=== PATIENT | female | born 1980 | race Caucasian/White ===

== ENCOUNTER 2016-10-24 11:15 | Outpatient (CLI) | payer MEDICAID ==
[~2016-10-24] VITALS: Ht 157.5 cm; Wt 80.7 kg
[2016-10-24 11:46] VITALS: Ht 157.5 cm; Wt 80.7 kg
[2016-10-24 11:47] VITALS: BP 116/66; PULSE 86; RESP 18
[2016-10-24] MEDS ORDERED: PRENAT PO (11:50)
[2016-10-24] MEDS ORDERED: FERR325C PO ×2 (11:51)
[2016-10-24] MEDS ORDERED: CALC-516 PO (11:51)
--- NOTE | 2016-10-24 14:08 | QN ---
Documentation Comment 35 y/o female sent from NST at 36 weeks gestation for ? deceleration on NST upon prolonged montoring NO deceleration seen will D/C home F/U with NST tgck BRANT Orozco MD Oct 24, 2016 14:08
--- NOTE | 2016-10-24 15:43 | CONS ---
Date/Time of Note Date/Time of Note DATE: 10/24/16 TIME: 15:35 Consultation Date/Type/Reason Admit Date/Time October 24, 2016. This is a triage consult dictation on Alysha Hilario : This patient is a 36 weeks and 5 days who was sent to triage due to late deceleration noted in NST clinic. She came here for extended monitoring. In reviewing her past medical history, she is a 2 para 1 with EDC of November 16, 2069 which makes her 36 weeks. She also has diabetes mellitus diet-controlled, Vital signs:. Blood pressure 116/66, pulse rate 86, respiration 18, heart tone normal range. Physical examination : basically abdomen is soft no to contractions No CVA tenderness, During an extended monitoring we did not notice any late decelerations or any deceleration for that matter, The tracing shows good variability and accelerations Subjective hx not possible: pt critical Constitutional: no complaints (With these positive findings of discharge patient home traction given for kick to attend the NST clinic end of dictation thank you) Eyes: no complaints Respiratory: no complaints Social History Smoking Status: Never smoker Exam/Review of Systems Vital Signs Vitals Vital Signs Date Time Temp Pulse Resp B/P Pulse Ox O2 Delivery O2 Flow Rate FiO2 10/24/16 11:47 98.0 86 18 116/66 Room Air BIBIANA BALDERAS MD Oct 24, 2016 15:43
--- NOTE | 2016-10-24 17:23 | TRIAGE ---
OB Triage Datetime Report Generated by CPN: 10/24/2016 17:23 Datetime: 10/24/2016 15:32 Stage of : OB Triage Labor Evaluation Frequency: occ Monitor Mode: External Duration (sec)2399: 40-70 Resting Tone [place]: Relaxed Heart Rate FHR Baseline Rate: 120 FHR Baseline Changes: No Baseline Change Variability: Moderate 6-25 bpm Accelerations: 15X15 Decelerations: None Category: Category I Datetime: 10/24/2016 14:30 Stage of : OB Triage Labor Evaluation Frequency: occ Monitor Mode: External Duration (sec)2399: 40-80 Quality: Mild Resting Tone [place]: Relaxed Heart Rate FHR Baseline Rate: 130 Monitor Mode: External US FHR Baseline Changes: No Baseline Change Variability: Moderate 6-25 bpm Accelerations: 15X15 Decelerations: None Category: Category I Datetime: 10/24/2016 13:10 Stage of : OB Triage Labor Evaluation Frequency: OCC Monitor Mode: External Duration (sec)2399: 40-70 Quality: Mild Resting Tone [place]: Relaxed Heart Rate FHR Baseline Rate: 140 Monitor Mode: External US Variability: Moderate 6-25 bpm Accelerations: 15X15 Decelerations: None Category: Category I Datetime: 10/24/2016 12:30 Stage of : OB Triage Labor Evaluation Frequency: occ Monitor Mode: External Duration (sec)2399: 40-80 Quality: Mild Resting Tone [place]: Relaxed Heart Rate FHR Baseline Rate: 130 Monitor Mode: External US Variability: Moderate 6-25 bpm Accelerations: 15X15 Decelerations: None Category: Category I Datetime: 10/24/2016 11:39 Assessment Type: Triage Maternal Assessment Level of Consciousness: Fully Conscious DTR's/Clonus: DTRs 2+; No Clonus Headache: Denies Blurred Vision: No Respiratory Effort: Unlabored Breath Sounds, Left: Clear and Equal Breath Sounds, Right: Clear and Equal Nausea/Vomiting: Denies RUQ Epigastric Pain: Denies Lower Extremities Edema: None Degree: None Upper Extremities Edema: None Degree: None Facial Edema: None Fall Risk Assessment History of Falling: (0) No Secondary Diagnosis: (15) Yes (Annotations: A1DM) Ambulatory Aid: (0) Bedrest/Nurse Assist IV Therapy: (0) No Gait: (0) Normal/Bedrest/Immobile Mental Status: (0) Oriented to Own Ability Fall Score: 15 Fall Risk Score Definition: No Risk: No action required Datetime: 10/24/2016 11:37 Time of Arrival: 10/24/2016 11:12 EGA: 36.5 Arrived By: Ambulatory Arrived From: Other Unit in Hospital Chief Complaint: Sent from NST for late decels Movement: Present Contractions: Denies/Absent Rupture of Membranes: Denies Vaginal Bleeding: None Vaginal Discharge: Denies Recent Sexual Intercouse: Denies Abdominal Trauma: Not Applicable Patient Complaints: Other Provider Notified: ERIN Initial Plan: VS, Extended monitoring Datetime: 10/24/2016 11:32 Stage of : OB Triage Monitor Mode: External Monitor Mode: External US Datetime: 10/24/2016 11:27 Stage of : OB Triage Datetime: 10/24/2016 11:18 Stage of : OB Triage
== END 2016-10-24 15:50 | disposition home or self-care (01) ==
LOC: OBT 11:15 → L-D 11:15 → OBT 15:50
PROVIDERS: ATTEND Obstetrics & Gynecology
DX: O26.893 Other specified pregnancy related conditions, third trimester (principal); O24.913 Unspecified diabetes mellitus in pregnancy, third trimester; O62.9 Abnormality of forces of labor, unspecified; Z3A.36 36 weeks gestation of pregnancy
CPT/HCPCS: 36415; Z7500; G0463

== ENCOUNTER 2016-10-28 12:08 | Inpatient (IN) | payer MEDICAID ==
[~2016-10-28] VITALS: Ht 157.5 cm; Wt 81.0 kg
[~2016-10-28 12:08] MED LIST: CALC-516 PO; FERR325C PO; PRENAT PO
[2016-10-28 12:58] VITALS: BP 117/70; PULSE 88; RESP 16; Ht 157.5 cm; Wt 81.0 kg
[2016-10-28] MEDS ORDERED: LACTATED RINGER'S 1,000 ML IV ONE (13:00)
[2016-10-28] MEDS: LACTATED RINGER'S 1,000 ML IV SCH ×2 (13:37→18:55)
--- NOTE | 2016-10-28 17:39 | NSTRPT ---
NST Information Datetime Report Generated by CPN: 10/28/2016 17:39 Datetime: 10/28/2016 09:25 NST Information EGA: 37.2 Time on Monitor: 10/28/2016 09:36 Time off Monitor: 10/28/2016 10:14 NST Duration (Min): 38 Test and Monitor Explained: Monitor Explained; Test Explained; Verbalized Understanding Pulse: 71 Resp: 18 SBP: 102 DBP: 55 Test Evaluation Contraction Frequency: X1, pt denies FHR Baseline : 135 Variability: Moderate 6-25bpm Accelerations: 15X15 Decelerations: None FHR Category: Category I NST Results: Reactive Provider Notified: Dr Shin Comments: To u/s CONY-5.4 cm, [facility] NST reviewed by Dr Yoder, recommends 4 hrs of hydration and if not improved, delivery. 1010-Repo rt called to Dr Shin, including Dr Yoder's recommendations, Orders received to send pt to triage f or hydration. 1020-POC explained to pt, asks if she can go home first, explained she needs to [facility] due to low cony. States understanding, denies further questions at this time, Pt to triage. Electronically Signed By E-Signature: with User ID: [id number]
[2016-10-29] MEDS: LACTATED RINGER'S 1,000 ML IV SCH ×3 (01:34→15:24)
--- NOTE | 2016-10-29 07:40 | RADRPT ---
PROCEDURE: Limited OB ultrasound CLINICAL INDICATION: Low CONY TECHNIQUE: Sonographic evaluation to assess the CONY was performed. Transabdominal imaging of the gravid uterus was performed. COMPARISON: No prior exam is available for comparison. FINDINGS: There is a single live intrauterine with a heart rate of 128 bpm. position is cephalic. The placenta is anterior. The CONY measures 8.2 cm. IMPRESSION: The CONY measures 8.2 cm. RPTAT: HH .Cassy Bonilla MD, MD Date Time Electronically viewed and signed by .Cassy Bonilla MD, on 10/29/2016 07:40 .G/
[2016-10-29] MEDS ORDERED: FERROUS SULFATE (EC) 325 MG TAB PO SCH (09:00)
[2016-10-29] MEDS ORDERED: MULTIVIT/MIN/FOLATE/IRON/PREN TAB PO SCH (09:00)
--- NOTE | 2016-10-29 15:38 | HP ---
Date/Time of Note Date/Time of Note late entry DATE: 10/28/16 OB - History Hx of Present Free Text/Dictation admitted for IV hydration because of CONY of 5.4cm yesterday Last Menstrual Period: February 10, 2016 Estimated Due Date: Nov 19, 2016 : 2 Para: 1 Ultrasounds: Abnormal US findings (single umbilical artery ) Obstetrical Complications: Gestational Diabetes Medical Complications: None Past Family/Social History * Past Medical, Surgical, Family and Obstetric Histories reviewed from chart. Blood Type: O+ Rubella: immune RPR/VDRL: Negative GBS Status: Unknown HBsAG: Negative OB Admission Exam Vital Signs Vital Signs Vital Signs Date Time Temp Pulse Resp B/P Pulse Ox O2 Delivery O2 Flow Rate FiO2 10/28/16 12:58 98.6 88 16 117/70 Room Air Physical Exam HEENT: WNL Heart: Rhythm Normal Lungs: Clear, Equal Abdomen: WNL Extremities: Normal Reflexes: Normal Cervical Dilatation: None Effacement: 0% Station: -3 Membranes: Intact Heart Rate: 150's Accelerations: Accelerations Present Decelerations: No Decelerations Varibility: Marked Contractions on Admission: None Last 72 hourBlood Glucose Bedside Glucose - 72 Hours Test 10/28/16 21:27 10/29/16 07:51 10/29/16 10:39 10/29/16 14:54 Bedside Glucose 104mg/dL (70-220) 72mg/dL (70-220) 104mg/dL (70-220) 123mg/dL (70-220) OB Assessment/Plan Other Assessment: 37 + weeks gestation decreased amniotic fluid Other plan: IV hydration BRANT PHILIP MD Oct 29, 2016 15:38
--- NOTE | 2016-10-29 15:41 | DS ---
Date/Time of Note Date/Time of Note refer to NST clinic in 2 days F/U with clinic in 2 days DATE: 10/29/16 TIME: 15:38 Obstetrical Discharge Record Final Diagnosis Final Diagnosis: Term not delivered Other Final Diagnosis decreased amniotic fluid ( resolved ) CONY on 10/29/2016 : 8.2cm Complications Gestational Diabetes Condition on Discharge Physical Assessment Voiding: Yes Bowel Movement: Yes Breast: Soft, non-tender, Filling Fundus: Other (gravid ) Abdomen and Incision: soft BS + Gravid Episiotomy: NA Calf Tenderness: No Patient Condition: Good BRANT PHILIP MD Oct 29, 2016 15:41
--- NOTE | 2016-10-29 15:43 | PD.PPDC ---
[employer] Discharge Instruction Provider Information Physician Information decreased amniotic fluid 37 weeks gestation Diagnosis Final Diagnosis: decreased amniotic fluid: resolved Condition Patient Condition: Good Diet Diet: Special Diet (200 kaden ADA) Activity/Restrictions Activity: Normal Activity May Shower Restrictions: Nothing in the Vagina Follow-up Follow-up with Physician: 2, Day/Days (in clinic and NST) BRANT PHILIP MD Oct 29, 2016 15:43
== END 2016-10-29 17:31 | disposition home or self-care (01) | DRG 781 ==
LOC: OBT 12:08 → L-D 12:10 → OBT 14:19 → L-D 14:21 → OBG 20:36
PROVIDERS: ADMIT Obstetrics & Gynecology; ATTEND Obstetrics & Gynecology
DX: O41.93X0 Disorder of amniotic fluid and membranes, unspecified, third trimester, not applicable or unspecified (principal); O24.419 Gestational diabetes mellitus in pregnancy, unspecified control; Z3A.37 37 weeks gestation of pregnancy
CPT/HCPCS: 36415; 76816; 82962; 96360; G0463; J7120

== ENCOUNTER 2016-11-09 07:59 | Inpatient (IN) | payer MEDICAID ==
[~2016-11-09] VITALS: Ht 160 cm; Wt 78.6 kg
[2016-11-09] MEDS ORDERED: LACTATED RINGER'S 1,000 ML IV SCH (08:13)
[2016-11-09] MEDS ORDERED: BUTORPHANOL 2 MG INJ IV PRN (08:30)
[2016-11-09] MEDS ORDERED: MISOPROSTOL 200 MCG TAB PR PRN (08:30)
[2016-11-09] MEDS ORDERED: OXYTOCIN 30 UNITS/LR 500 ML IV SCH (08:30)
[2016-11-09] MEDS ORDERED: METHYLERGONOVINE 0.2 MG INJ IM PRN (08:30)
[2016-11-09] MEDS ORDERED: LIDOCAINE 1% (MPF) 30 ML INJ INJ PRN (08:30)
[2016-11-09] MEDS ORDERED: OXYTOCIN 30 UNITS/LR 500 ML IV PRN (08:30)
[2016-11-09] MEDS ORDERED: CARBOPROST 250 MCG INJ IM PRN (08:30)
[2016-11-09] MEDS ORDERED: IBUPROFEN 600 MG TAB PO PRN (08:30)
[2016-11-09 08:31] VITALS: BP 121/66; PULSE 75; RESP 18
[2016-11-09 08:38] VITALS: Ht 160 cm; Wt 78.6 kg
[2016-11-09 09:13] LABS: BASOPHILS % 0.2 % (0.0-2.0); EOSINOPHILS % 0.3 % (0.0-7.0); HEMATOCRIT 35.8 % (37.0-47.0); HEMOGLOBIN 12.2 g/dl (12.0-16.0); LYMPHOCYTES # 2.2 10^3/ul (0.8-2.9); LYMPHOCYTES % 20.5 % (15.0-51.0); MEAN CORPUSCULAR HEMOGLOBIN 29.1 pg (29.0-33.0); MEAN CORPUSCULAR HGB CONC 34.2 g/dl (32.0-37.0); MEAN CORPUSCULAR VOLUME 85.2 fl (82.0-101.0); MEAN PLATELET VOLUME 8.3 fl (7.4-10.4); MONOCYTE # 0.5 10^3/ul (0.3-0.9); PLATELET COUNT 280 10^3/UL (140-440); RED BLOOD COUNT 4.19 10^6/ul (4.20-5.40); RED CELL DISTRIBUTION WIDTH 14.3 % (11.5-14.5); UNCORRECTED WBC 10.9 10^3/ul (4.8-10.8); WHITE BLOOD COUNT 10.9 10^3/ul (4.8-10.8)
[2016-11-09 09:17] LABS: CONDITION 1
[2016-11-09 09:27] LABS: INR 0.88; PROTIME 11.9 Sec (12.2-14.2); PT RATIO 0.9
[2016-11-09 09:28] LABS: PARTIAL THROMBOPLASTIN TIME 27.9 Sec (25.0-35.0)
[2016-11-09] MEDS: LACTATED RINGER'S 1,000 ML IV SCH ×2 (09:55→19:17)
[2016-11-09] MEDS ORDERED: DINOPROSTONE 10 MG VAG SUPP VAG ONE (10:00)
[2016-11-09] MEDS: DEXTROSE 5%-LR 1,000 ML IV SCH (11:04)
[2016-11-09] MEDS ORDERED: LACTATED RINGER'S 1,000 ML IV PRN (12:00)
--- NOTE | 2016-11-10 00:09 | HP ---
Date/Time of Note Date/Time of Note DATE: 11/10/16 TIME: 00:04 OB - History Hx of Present Free Text/Dictation admitted ar 39 weeks for induction of the labor because of decreased amniotic fluid Last Menstrual Period: February 10, 2016 Estimated Due Date: Nov 16, 2016 : 2 Para: 1 Care: Good Care Ultrasounds: Abnormal US findings (two vessel cord ) Obstetrical Complications: Gestational Diabetes Medical Complications: None Past Family/Social History * Past Medical, Surgical, Family and Obstetric Histories reviewed from chart. Blood Type: O+ Rubella: immune RPR/VDRL: Negative GBS Status: Negative HBsAG: Negative OB Admission Exam Vital Signs Vital Signs Vital Signs Date Time Temp Pulse Resp B/P Pulse Ox O2 Delivery O2 Flow Rate FiO2 11/09/16 08:31 98.3 75 18 121/66 Physical Exam HEENT: WNL Heart: Rhythm Normal Lungs: Clear, Equal Abdomen: WNL Extremities: Normal Reflexes: Normal Cervical Dilatation: None Effacement: 0% Station: Ballotable Membranes: Intact Heart Rate: 130's Accelerations: Accelerations Present Decelerations: No Decelerations Varibility: Moderate Contractions on Admission: None Last 72 hourBlood Glucose Bedside Glucose - 72 Hours Test 11/09/16 10:59 11/09/16 12:58 11/09/16 15:05 11/09/16 17:48 Bedside Glucose 73mg/dL (70-220) 86mg/dL (70-220) 149mg/dL (70-220) 110mg/dL (70-220) Test 11/09/16 19:42 11/09/16 21:30 11/09/16 23:38 Bedside Glucose 145mg/dL (70-220) 116mg/dL (70-220) 104mg/dL (70-220) Last 72 hours Lab Results CBC & BMP 11/09/16 08:50 OB Assessment/Plan Reason for admission: induction of labor Other Assessment: decreased amniotic fluid 39 weeks gestation GDM two vessel cord Induction Method: per Misoprostol Protocol BRANT PHILIP MD Nov 10, 2016 00:09
[2016-11-10] MEDS: LACTATED RINGER'S 1,000 ML IV SCH ×3 (00:32→16:48)
[2016-11-10] MEDS ORDERED: DINOPROSTONE 10 MG VAG SUPP VAG ONE (11:30)
[2016-11-10] MEDS: DEXTROSE 5%-LR 1,000 ML IV SCH ×2 (20:42→20:43)
--- NOTE | 2016-11-10 22:40 | PN ---
Date/Time of Note Date/Time of Note DATE: 11/10/16 TIME: 22:39 OB Subjective Subjective Subjective no C/O UC OB Objective Objective Objective Cx: long and FT OB Assessment/Plan Reason for admission: induction of labor Other Assessment: GDM Induction Method: per Misoprostol Protocol BRANT PHILIP MD Nov 10, 2016 22:40
[2016-11-11] MEDS: LACTATED RINGER'S 1,000 ML IV SCH ×3 (00:42→17:55)
[2016-11-11] MEDS: DEXTROSE 5%-LR 1,000 ML IV SCH ×3 (01:55→17:55)
[2016-11-11] MEDS ORDERED: OXYTOCIN 30 UNITS/LR 500 ML IV SCH (13:30)
[2016-11-11] MEDS ORDERED: FENTAnyl 2MCG/ML-ROPIV 0.2% 100 ML ONE (13:46)
[2016-11-11] MEDS ORDERED: MINERAL OIL LIGHT 10 ML VIAL TOP ONE (16:30)
[2016-11-11] MEDS ORDERED: FENTAnyl 2MCG/ML-ROPIV 0.2% 100 ML BAG EPI SCH (18:00)
[2016-11-11] MEDS ORDERED: NALOXONE (0.4 MG/ML) INJ IV PRN (18:00)
[2016-11-11] MEDS: OXYTOCIN 30 UNITS/LR 500 ML IV SCH ×2 (18:31→19:05)
--- NOTE | 2016-11-11 18:36 | LDN ---
Date/Time of Note Date/Time of Note DATE: 11/11/16 TIME: 18:34 Delivery Summary of a viable over intact perineum Placenta Delivered: Spontaneously, Intact & Complete Meconium: none Perineum intact?: Yes Anesthesia type: Epidural Estimated blood loss: 200 Sponge & Needle done & correct: Yes All needle counts correct: Yes Any foreign bodies felt in the: No Problems: Delivery Information Sex Infant Sex: male Apgars 1 Minute: 9 5 Minute: 9 Suctioning Nose & mouth suctioned at [place]: Yes Delee suction performed: No Umbilical Cord Umbilical cord with: 2 Vessels Cord presentations: no nuchal cord Cord Blood was obtained: Yes Mother & Baby Disposition Disposition Mom & Baby to Maternity; Good: Yes (mother and baby were recovered in good condition ) Mom transferred to: Other (maternity) Baby to NICU: Yes BRANT PHILIP MD Nov 11, 2016 18:36
[2016-11-11] MEDS ORDERED: OXYTOCIN 30 UNITS/LR 500 ML IV PRN (21:00)
[2016-11-11] MEDS ORDERED: DIBUCAINE 1% 30 GM OINT PR PRN (21:00)
[2016-11-11] MEDS ORDERED: ZOLPIDEM 5 MG TAB PO PRN (21:00)
[2016-11-11] MEDS ORDERED: METHYLERGONOVINE 0.2 MG INJ IM PRN (21:00)
[2016-11-11] MEDS ORDERED: WITCH HAZEL/GLYCERIN PAD PR PRN (21:00)
[2016-11-11] MEDS ORDERED: CARBOPROST 250 MCG INJ IM PRN (21:00)
[2016-11-11] MEDS: SENNA/DOCUSATE NA (8.6MG/50MG) TAB PO SCH (21:00)
[2016-11-11] MEDS ORDERED: BENZOCAINE 20% 56 ML SPRAY TOP PRN (21:00)
[2016-11-11] MEDS ORDERED: MISOPROSTOL 200 MCG TAB PR PRN (21:00)
[2016-11-11] MEDS: MAGNESIUM HYDROXIDE 30ML CUP PO SCH (21:00)
[2016-11-11] MEDS ORDERED: ACETAMINOPHEN/CODEINE #3 TAB PO PRN ×2 (21:00)
[2016-11-11] MEDS ORDERED: LANOLIN 7 GM TUBE TOP PRN (21:00)
[2016-11-11 21:10] VITALS: BP 114/55; PULSE 89; RESP 20
[2016-11-11] MEDS: LACTATED RINGER'S 1,000 ML IV* SCH (22:57)
[2016-11-12] VITALS: BP 99/51; PULSE 101; RESP 18
[2016-11-12] MEDS: CEPHALEXIN 500 MG CAP PO SCH ×4 (00:23→17:43)
[2016-11-12] MEDS: IBUPROFEN 600 MG TAB PO SCH ×4 (00:23→17:43)
[2016-11-12 04:00] VITALS: BP 90/49; PULSE 80; RESP 18
[2016-11-12] MEDS: LACTATED RINGER'S 1,000 ML IV* SCH ×2 (04:49→12:49)
[2016-11-12 08:00] VITALS: BP 111/61; PULSE 65; RESP 20
[2016-11-12 08:59] LABS: HEMATOCRIT 33.4 % (37.0-47.0); HEMOGLOBIN 11.4 g/dl (12.0-16.0); MEAN CORPUSCULAR HEMOGLOBIN 28.9 pg (29.0-33.0); MEAN CORPUSCULAR VOLUME 85.2 fl (82.0-101.0); MEAN PLATELET VOLUME 8.8 fl (7.4-10.4); PLATELET COUNT 226 10^3/UL (140-440); RED BLOOD COUNT 3.93 10^6/ul (4.20-5.40); RED CELL DISTRIBUTION WIDTH 14.2 % (11.5-14.5); UNCORRECTED WBC 22.5 10^3/ul (4.8-10.8); WHITE BLOOD COUNT 22.5 10^3/ul (4.8-10.8)
[2016-11-12] MEDS: SENNA/DOCUSATE NA (8.6MG/50MG) TAB PO SCH ×2 (09:00→20:26)
[2016-11-12] MEDS: MAGNESIUM HYDROXIDE 30ML CUP PO SCH ×2 (09:00→20:26)
[2016-11-12 09:10] LABS: CONDITION 1; LH ANALYZER COMMENTS 1; SUSPECT 1
[2016-11-12 10:11] LABS: MONOCYTE # 0.5 10^3/ul (0.3-0.9); NEUTROPHIL # 16.7 10^3/ul (1.6-7.5)
[2016-11-12] MEDS: ACCUCHECK XX SCH ×3 (10:30→20:27)
--- NOTE | 2016-11-12 15:17 | DS ---
Date/Time of Note Date/Time of Note home next day if stable DATE: 11/12/16 TIME: 15:16 Obstetrical Discharge Record Final Diagnosis Final Diagnosis: Term delivered Other Final Diagnosis S/P vaginal delivery Vaginal Delivery Obstetrical Delivery: Spontaneous Complications Augmentation: Yes Induction: Yes Condition on Discharge Physical Assessment Last Vitals: see nurses notes Voiding: Yes Bowel Movement: Yes Breast: Soft, non-tender, Filling Fundus: Firm Abdomen and Incision: soft BS + Episiotomy: NA Calf Tenderness: No Patient Condition: Good BRANT PHILIP MD Nov 12, 2016 15:17
[2016-11-12 16:23] VITALS: BP 98/58; PULSE 63; RESP 18
--- NOTE | 2016-11-12 16:59 | PD.PPDC ---
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
[2016-11-12] MEDS ORDERED: CEPH500C PO (17:00)
[2016-11-12] MEDS ORDERED: IBUP-1542 PO (17:00)
[2016-11-12 20:00] VITALS: BP 94/50; PULSE 74; RESP 18
[2016-11-13] MEDS: CEPHALEXIN 500 MG CAP PO SCH ×4 (00:04→17:09)
[2016-11-13] MEDS: IBUPROFEN 600 MG TAB PO SCH ×4 (00:04→17:09)
[2016-11-13 04:15] VITALS: BP 108/65; PULSE 56; RESP 18
[2016-11-13 08:00] VITALS: BP 117/64; PULSE 54; RESP 18
[2016-11-13] MEDS: ACCUCHECK XX SCH ×2 (08:26→10:05)
[2016-11-13] MEDS ORDERED: VARICELLA VACCINE LIVE/PF 1,350 UNIT/0.5 ML ML SC* ONE (09:00)
[2016-11-13] MEDS: SENNA/DOCUSATE NA (8.6MG/50MG) TAB PO SCH (09:00)
[2016-11-13] MEDS ORDERED: DIPHTH/TET/ACEL PERTUSS (ADULT) 0.5 ML VIAL IM* ONE (09:00)
[2016-11-13] MEDS ORDERED: MEASLES,MUMPS,RUBELLA VACCINE INJ SC* ONE (09:00)
[2016-11-13] MEDS ORDERED: INFLUENZA VIRUS VACCINE 0.5 ML (DISPENSING) IM* ONE (09:00)
[2016-11-13] MEDS: MAGNESIUM HYDROXIDE 30ML CUP PO SCH (09:00)
[2016-11-13 09:13] LABS: BASOPHIL # 0.1 10^3/ul (0.0-0.1); BASOPHILS % 0.4 % (0.0-2.0); EOSINOPHILS # 0.1 10^3/ul (0.0-0.5); EOSINOPHILS % 0.4 % (0.0-7.0); HEMATOCRIT 32.1 % (37.0-47.0); HEMOGLOBIN 10.9 g/dl (12.0-16.0); LYMPHOCYTES # 2.5 10^3/ul (0.8-2.9); LYMPHOCYTES % 17.4 % (15.0-51.0); MEAN CORPUSCULAR HEMOGLOBIN 29.4 pg (29.0-33.0); MEAN CORPUSCULAR VOLUME 86.4 fl (82.0-101.0); MEAN PLATELET VOLUME 8.6 fl (7.4-10.4); MONOCYTE # 0.7 10^3/ul (0.3-0.9); NEUTROPHIL # 11.1 10^3/ul (1.6-7.5); NEUTROPHILS % 76.8 % (39.0-77.0); PLATELET COUNT 232 10^3/UL (140-440); RED BLOOD COUNT 3.72 10^6/ul (4.20-5.40); RED CELL DISTRIBUTION WIDTH 14.9 % (11.5-14.5); UNCORRECTED WBC 14.5 10^3/ul (4.8-10.8); WHITE BLOOD COUNT 14.5 10^3/ul (4.8-10.8)
[2016-11-13 09:18] LABS: CONDITION 1; LH ANALYZER COMMENTS 1
[2016-11-13 16:14] VITALS: BP 107/55; PULSE 56; RESP 18
== END 2016-11-13 18:00 | disposition home or self-care (01) | DRG 775 ==
LOC: L-D 07:59 → PP1 11-11 20:58
PROVIDERS: ADMIT Obstetrics & Gynecology; ATTEND Obstetrics & Gynecology
PROC: 3E0P7GC Introduction of Other Therapeutic Substance into Female Reproductive, Via Natural or Artificial Opening (ICD-10-PCS; 2016-11-09)
PROC: 10E0XZZ Delivery of Products of Conception, External Approach (ICD-10-PCS; principal; 2016-11-11)
DX: O41.03X0 Oligohydramnios, third trimester, not applicable or unspecified (principal); O24.429 Gestational diabetes mellitus in childbirth, unspecified control; Z3A.39 39 weeks gestation of pregnancy; Z37.0 Single live birth
CPT/HCPCS: 62319; 82947; 82962; 85025; 85610; 85730; 86592; 86900; 86901; 90686; 90715; 90716; J2590; J3010; J7120; J7121